=== PATIENT | female | born 1930 | race Caucasian/White ===

== ENCOUNTER 2021-01-08 10:07 | Inpatient (IN) | payer OTHER ==
[~2021-01-08] VITALS: Ht 152.4 cm; Wt 68.0 kg
[2021-01-08] MEDS ORDERED: ATACAND16 MG (10:16)
[2021-01-08] MEDS ORDERED: ELIQUIS2.5 MG (10:16)
[2021-01-08] MEDS ORDERED: HYDRALAZINE HCL25 MG (10:16)
[2021-01-08] MEDS ORDERED: TOPROL XL25 M1 (10:16)
[2021-01-08] MEDS ORDERED: HYTRIN (10:17)
[2021-01-08] MEDS ORDERED: RESTORIL15 MG (10:17)
[2021-01-08] MEDS ORDERED: REFRESH CLASSI1 EACH (10:18)
[2021-01-08] MEDS ORDERED: RISPERDAL0.5 MG (10:18)
[2021-01-11] MEDS ORDERED: INTESTINEX680 M1 (08:35)
[2021-01-11] MEDS ORDERED: LATANOPROST2.5 ML (08:35)
[2021-01-11] MEDS ORDERED: TERAZOSIN HCL5 MG (08:35)
[2021-01-11] MEDS ORDERED: FOLIC ACID0.8 M1 (08:35)
[2021-02-23] MEDS ORDERED: ELIQUIS2.5 MG PO (13:50)
[2021-02-23] MEDS ORDERED: AMIODARONE HCL200 MG PO (13:50)
[2021-02-23] MEDS ORDERED: CHOLESTYRAMINE L4 GM PO (13:51)
[2021-02-23] MEDS ORDERED: TOPROL XL25 MG PO (13:53)
[2021-02-23] MEDS ORDERED: RISPERDAL0.5 MG PO (13:59)
[2021-02-23] MEDS ORDERED: PROTEINEX-18 LI30 ML NGT (14:00)
[2021-02-23] MEDS ORDERED: FOLIC ACID1 MG PO (14:00)
[2021-02-23] MEDS ORDERED: VITAMIN D3125 MC2 PO (14:01)
[2021-02-23] MEDS ORDERED: CYANOCOBAL1000 MCG/1 IM (14:01)
[2021-02-23] MEDS ORDERED: FUROSEMIDE40 MG PO (14:02)
[2021-02-23] MEDS ORDERED: REFRESH CLASSI1 EACH OP (14:04)
[2021-02-23] MEDS ORDERED: LATANOPROST2.5 ML OP (14:04)
[2021-02-23] MEDS ORDERED: INTESTINEX680 M1 PO (14:05)
[2021-02-23] MEDS ORDERED: PREVACID 24HR15 MG PO (14:06)
== END 2021-02-23 20:39 | disposition home or self-care (01) | DRG 463 ==
LOC: ER 10:07 → MEDI 22:02
PROVIDERS: Surgery; ADMIT Internal Medicine; ATTEND Internal Medicine
PROC: 8E0ZXY6 Isolation (ICD-10-PCS; 2021-01-08)
PROC: 4A12X4Z Monitoring of Cardiac Electrical Activity, External Approach (ICD-10-PCS; 2021-01-09)
PROC: 30233N1 Transfusion of Nonautologous Red Blood Cells into Peripheral Vein, Percutaneous Approach (ICD-10-PCS; 2021-01-09)
PROC: 0QB10ZZ Excision of Sacrum, Open Approach (ICD-10-PCS; 2021-01-11)
PROC: 0JB70ZZ Excision of Back Subcutaneous Tissue and Fascia, Open Approach (ICD-10-PCS; principal; 2021-01-11 21:00)
PROC: 0D20XUZ Change Feeding Device in Upper Intestinal Tract, External Approach (ICD-10-PCS; 2021-01-23)
DX: M46.28 Osteomyelitis of vertebra, sacral and sacrococcygeal region (principal); L89.154 Pressure ulcer of sacral region, stage 4; L89.153 Pressure ulcer of sacral region, stage 3; A41.89 Other specified sepsis; R65.20 Severe sepsis without septic shock; I48.20 Chronic atrial fibrillation, unspecified; K94.23 Gastrostomy malfunction; G72.81 Critical illness myopathy; F01.50 Vascular dementia, unspecified severity, without behavioral disturbance, psychotic disturbance, mood disturbance, and anxiety; D64.9 Anemia, unspecified; B96.4 Proteus (mirabilis) (morganii) as the cause of diseases classified elsewhere; B96.20 Unspecified Escherichia coli [E. coli] as the cause of diseases classified elsewhere; Z20.822 Contact with and (suspected) exposure to COVID-19; Z79.01 Long term (current) use of anticoagulants; Y84.8 Other medical procedures as the cause of abnormal reaction of the patient, or of later complication, without mention of misadventure at the time of the procedure; D69.49 Other primary thrombocytopenia
CPT/HCPCS: 72148